=== PATIENT | female | born 1990 | race Caucasian/White ===

== ENCOUNTER 2020-11-25 17:11 | Emergency (ER) | payer OTHER ==
[2020-11-25 17:49] LABS: #Basophils 0.1 thou/uL (0.0-0.2); #Eosinphils 0.1 thou/uL (0.0-0.7); #Lymphocytes 2.8 thou/uL (1.20-3.40); #Monocytes 0.5 thou/uL (0.11-0.59); #Neutrophils 7.6 thou/uL (1.40-6.50); %Eosinophils 0.9 % (0.0-10.0); %Lymphocytes 24.8 % (21.0-51.0); %Monocytes 4.6 % (0.0-10.0); %Neutrophils 68.7 % (42.0-75.0); Hemoglobin 13.2 g/dL (12.0-16.0); Mean Corpuscular HGB CONC 34.2 g/dL (32.0-36.0); Mean Corpuscular Hemoglobin 30.6 pg (27.0-31.0); Mean Corpuscular Volume 89.5 fL (78.0-98.0); Mean Platelet Volume 9.3 fL (7.4-10.4); Platelet Count 246 thou/uL (130-400); RBC Distribution Width 11.2 % (11.5-14.5); White Blood Cell (WBC) Count 11.1 thou/uL (4.8-10.8)
[2020-11-25 18:39] LABS: Chloride 105 mmol/L (98-107); Potassium 3.8 mmol/L (3.5-5.1); Sodium 136 mmol/L (136-145)
[2020-11-25 18:40] LABS: Globulin 2.8 g/dL (2.4-3.5); Glucose 82 mg/dL (70-105); Protein, Total 6.8 g/dL (6.0-8.3)
[2020-11-25 18:41] LABS: Anion Gap 14 mmol/L (10-20); Carbon Dioxide 21 mmol/L (22-29)
[2020-11-25 18:42] LABS: Bilirubin, Total 0.5 mg/dL (0.2-1.2)
[2020-11-25 18:43] LABS: Alkaline Phosphatase 54 U/L (40-110); Calc. Creatinine Clearance 0 mL/min (70-130)
[2020-11-25 18:44] LABS: BUN (Urea Nitrogen) 10 mg/dL (7.0-18.7)
[2020-11-25 18:45] LABS: AST (SGOT) 15 U/L (5-34)
[2020-11-25 18:46] LABS: ALT (SGPT) 10 U/L (8-55)
== END 2020-11-25 19:00 | disposition home or self-care (01) ==
LOC: ERS 17:11
DX: I47.1 Supraventricular tachycardia (principal)
CPT/HCPCS: 71045; 80053; 84484; 85025; 93005; 94760

== ENCOUNTER 2023-05-29 01:28 | Observation (INO) | payer BC, OTHER, SELFPAY ==
[2023-05-29] MEDS ORDERED: Sodium Chloride 0.9% 100 ML ONE (02:08)
[2023-05-29] MEDS ORDERED: Tranexamic Acid 1,000 MG/10 ML VIAL ONE (02:08)
[2023-05-29 02:26] LABS: #Basophils 0.1 thou/uL (0.0-0.2); #Eosinphils 0.2 thou/uL (0.0-0.7); #Monocytes 0.5 thou/uL (0.11-0.59); #Neutrophils 6.9 thou/uL (1.40-6.50); %Basophils 0.9 % (0.0-1.0); %Eosinophils 1.7 % (0.0-10.0); %Lymphocytes 28.1 % (21.0-51.0); %Neutrophils 64.1 % (42.0-75.0); Hematocrit 38.9 % (36.0-47.0); Hemoglobin 13.1 g/dL (12.0-16.0); Mean Corpuscular HGB CONC 33.7 g/dL (32.0-36.0); Mean Platelet Volume 9.7 fL (7.4-10.4); Platelet Count 301 10x3/uL (130-400); Red Blood Cell (RBC) Count 4.37 mill/uL (4.20-5.40); White Blood Cell (WBC) Count 10.7 10x3/uL (4.8-10.8)
[2023-05-29] MEDS ORDERED: Acetaminophen 500 MG TAB ONE (02:33)
[2023-05-29 02:42] LABS: BHCG - Serum Negative (NEGATIVE); Pregs Control Background? CLEAR/WHITE (CLR/WHITE); Pregs Control Bar Appear? YES (CONTROL BAR)
[2023-05-29 02:47] LABS: PTT 26.6 sec (22.9-36.1); Prothrombin Time 13.5 sec (12.0-14.7)
[2023-05-29 02:49] LABS: ALT (SGPT) 16 U/L (8-55); AST (SGOT) 18 U/L (5-34); Albumin 4.1 g/dL (3.5-5.0); Alkaline Phosphatase 62 U/L (40-110); Anion Gap 14 mmol/L (10-20); BUN (Urea Nitrogen) 9 mg/dL (7.0-18.7); Bilirubin, Total 0.3 mg/dL (0.2-1.2); Calc. Creatinine Clearance 0 mL/min (70-130); Calcium 9.3 mg/dL (7.8-10.44); Carbon Dioxide 21 mmol/L (22-29); Chloride 105 mmol/L (98-107); Estimated GFR 102; Globulin 3.3 g/dL (2.4-3.5); Glucose 105 mg/dL (70-105); Potassium 4.2 mmol/L (3.5-5.1); Protein, Total 7.4 g/dL (6.0-8.3); Sodium 136 mmol/L (136-145)
[2023-05-29] MEDS ORDERED: Morphine 4 MG/ML VIAL ONE (02:56)
[2023-05-29] MEDS ORDERED: Ondansetron PF 4 MG/2 ML Vial ONE ×2 (03:43→05:32)
[2023-05-29] MEDS ORDERED: Lidocaine 1% PF 5 ML VIAL ONE (03:43)
[2023-05-29] MEDS ORDERED: Lidocaine 2% PF 5 ML VIAL ONE (03:43)
[2023-05-29] MEDS ORDERED: PROPOFOL 20 ML ONE ×2 (03:43→04:28)
[2023-05-29] MEDS ORDERED: Famotidine/PF 20 mg/2ml Vial ONE (03:47)
[2023-05-29] MEDS ORDERED: Succinylcholine 200 MG/10 ml SYRINGE FS ONE (03:47)
[2023-05-29] MEDS ORDERED: Dexamethasone 20 MG/5 ML VIAL ONE (03:49)
[2023-05-29] MEDS ORDERED: oxyCODONE 5 MG TAB PO PRN ×2 (03:51→03:54)
[2023-05-29] MEDS ORDERED: Ondansetron HCl/PF 4 MG/2 ML Vial IVP PRN (03:59)
[2023-05-29] MEDS ORDERED: Promethazine HCl 25 MG/ML VIAL IM PRN (03:59)
[2023-05-29] MEDS ORDERED: fentaNYL 50 mcg/mL 1 mL Vial ONE ×3 (04:00→05:08)
[2023-05-29] MEDS: Acetaminophen 325 MG/10.15 ML UDCUP PO SCH ×4 (06:17→15:37)
[2023-05-29] MEDS: Lactated Ringer's 1,000 ML IV SCH ×2 (06:22→13:34)
[2023-05-29] MEDS: Ondansetron PF 4 MG/2 ML Vial IVP PRN ×2 (06:29→12:44)
[2023-05-29 06:40] VITALS: BMI 21.7
[2023-05-29 12:55] VITALS: TEMP 98
[2023-05-29 16:41] VITALS: BP 111/82
== END 2023-05-29 16:35 | disposition home or self-care (01) ==
LOC: ERS 01:28 → SDC/OP 04:00 → SURG A 05:24
PROVIDERS: ADMIT Otolaryngology; ATTEND Otolaryngology
PROC: 0W330ZZ Control Bleeding in Oral Cavity and Throat, Open Approach (ICD-10-PCS; principal; 2023-05-29)
DX: J35.8 Other chronic diseases of tonsils and adenoids (principal); Z88.8 Allergy status to other drugs, medicaments and biological substances
CPT/HCPCS: 36415; 80053; 84703; 85025; 85610; 85730; 96365; 96375; J1100; J2001; J2270; J2405; J2704; J3010; J3490; J7120; S0028